=== PATIENT | male | born 1980 | race Hispanic/Latino ===

== ENCOUNTER 2017-05-29 07:29 | Emergency (ER) | payer OTHER ==
[~2017-05-29] VITALS: Ht 180.3 cm; Wt 98.0 kg
[~2017-05-29 07:29] MED LIST: ALEVE220 M2 PO; AMOXICILLIN500 MG PO; CEPHALEXIN500 MG PO; CIPRODEX1 ML AD; FLEXERIL PO; LORTAB5 PO; MOTRIN800 MG/TAB PO; TIZANIDINE4 MG PO; TORADOL PO
[2017-05-29 08:19] LABS: HEMATOCRIT 45.7 % (39.0-50.0); IMMATURE GRANULOCYTES 0.2 % (0.0-1.0); MEAN CELL VOLUME 92.3 fL CALC (80.0-100.0); MEAN CORPUSCULAR HGB 32.3 pG CALC (26.0-32.0); NEUT# 6.94 thou/uL (1.82-7.42); RED BLOOD COUNT 4.95 mill/uL (4.70-6.10); RED CELL DISTRI WIDTH 13.1 % (11.5-15.5)
[2017-05-29 08:26] LABS: ALBUMIN 4.7 g/dL (3.2-5.0); ALKALINE PHOSPHATASE 120 u/l (38-126); ANION GAP 19 (6-22 (CALC)); BILIRUBIN, TOTAL 0.8 mg/dL (0.0-1.4); BUN 18 mg/dL (9-20); BUN/CREATININE RATIO 17 (12-20 (CALC)); CARBON DIOXIDE 24 mmol/l (22-30); CHLORIDE 104 mmol/l (95-108); GFR > 60 ML/MIN (>=60 (CALC)); GFR FOR AFR.AMER. > 60 ML/MIN (>=60 (CALC)); LIPASE 154 u/l (23-300); POTASSIUM 4.6 mmol/l (3.5-5.1); SGOT/AST 27 u/l (17-59); SGPT/ALT 38 u/l (21-72); SODIUM 144 mmol/l (137-146); TOTAL PROTEIN 7.8 g/dL (6.3-8.2)
[2017-05-29 10:30] LABS: URINE BILIRUBIN - DIPSTICK NEGATIVE (NEGATIVE); URINE BLOOD DIPSTICK NEGATIVE (NEGATIVE); URINE COLOR YELLOW; URINE GLUCOSE - DIPSTICK NEGATIVE (NEGATIVE); URINE KETONE TRACE mg/dL (NEGATIVE); URINE LEUK ESTERASE NEGATIVE (NEGATIVE); URINE NITRITE - DIPSTICK NEGATIVE (Negative); URINE PROTEIN - DIPSTICK NEGATIVE (NEG-TRACE); URINE SPECIFIC GRAVITY <=1.005; URINE UROBILINOGEN - DIPSTICK 0.2 E.U./dL (0.2)
[2017-05-29 10:33] LABS: URINE CLARITY CLEAR
[2017-05-29] MEDS ORDERED: ZOFRAN4 M1 PO (10:39)
[2017-05-29 10:45] VITALS: BP 121/65
== END 2017-05-29 10:54 | disposition home or self-care (01) | DRG 392 ==
LOC: ED 07:29
PROVIDERS: Family Medicine
DX: K52.9 Noninfective gastroenteritis and colitis, unspecified (principal); F17.210 Nicotine dependence, cigarettes, uncomplicated; R10.13 Epigastric pain
CPT/HCPCS: S0164

== ENCOUNTER 2017-05-31 19:30 | Emergency (ER) | payer OTHER ==
[~2017-05-31 19:30] MED LIST changes: +ZOFRAN4 M1 PO
== END 2017-05-31 19:50 | disposition left against medical advice (07) | DRG 951 ==
LOC: ED 19:30 → LWOBS 19:50
DX: Z91.19 Patient's noncompliance with other medical treatment and regimen (principal)